=== PATIENT | female | born 1955 | race Caucasian/White ===

== ENCOUNTER 2022-09-12 09:08 | Emergency (ER) | payer OTHER ==
[~2022-09-12] VITALS: Ht 167.6 cm; Wt 53.2 kg
[2022-09-12 10:01] VITALS: BP 155/79
[2022-09-12 10:15] VITALS: BP 150/80
[2022-09-12] MEDS ORDERED: ZPAK PO (10:15)
[2022-09-12] MEDS ORDERED: AMOX/K CLAV875 M1 PO (10:15)
[2022-09-12] MEDS ORDERED: BENZONATATE150 MG PO (10:17)
[2022-09-12 10:30] VITALS: BP 141/72
[2022-09-12 10:37] VITALS: BP 141/72
[2022-09-12] MEDS ORDERED: PANTOPRAZOLE SO40 M1 PO (10:41)
[2022-09-12] MEDS ORDERED: PROMETRIUM100 MG PO (10:42)
[2022-09-12] MEDS ORDERED: TIAZAC120 MG (10:44)
== END 2022-09-12 10:55 | disposition home or self-care (01) | DRG 195 ==
LOC: ED 09:08
DX: J18.9 Pneumonia, unspecified organism (principal); Z20.822 Contact with and (suspected) exposure to COVID-19